=== PATIENT | male | born 1980 | race African-American/Black ===

== ENCOUNTER 2022-12-12 01:05 | Emergency (ER) | payer OTHER ==
[~2022-12-12] VITALS: Ht 188 cm; Wt 127.3 kg
[2022-12-12 01:22] VITALS: TEMP 98.2
[2022-12-12 01:42] VITALS: BP 125/76; PULSE 85; RESP 18
[2022-12-12] MEDS ORDERED: FLUCONAZOLE 150 MG TABLET PO ONE (02:00)
[2022-12-12] MEDS ORDERED: CEPH-558 PO (02:00)
[2022-12-12] MEDS ORDERED: CLOT15CR29 TP (02:00)
[2022-12-12] MEDS ORDERED: DOXYCYCLINE HYCLATE 100 MG TABLET PO ONE (02:00)
[2022-12-12] MEDS ORDERED: FLUC150T61 PO (02:00)
[2022-12-12] MEDS ORDERED: DOXY-354 PO (02:00)
[2022-12-12] MEDS ORDERED: CEPHALEXIN MONOHYDRATE 500 MG CAPSULE PO ONE (02:00)
== END 2022-12-12 02:36 | disposition home or self-care (01) ==
LOC: EMS 01:06
DX: B35.4 Tinea corporis (principal); L08.9 Local infection of the skin and subcutaneous tissue, unspecified; J45.909 Unspecified asthma, uncomplicated
CPT/HCPCS: 99283